=== PATIENT | female | born 1975 | race Caucasian/White ===

== ENCOUNTER 2018-03-05 10:39 | Outpatient (CLI) ==
[2016-01-26 07:41] VITALS: BMI 28.1
== END 2018-03-05 10:40 | disposition home or self-care (01) ==
LOC: RHC-LAB 10:39
PROVIDERS: ATTEND Nurse Practitioner Family
DX: R73.9 Hyperglycemia, unspecified (principal); N64.4 Mastodynia
CPT/HCPCS: 36415; 80053; 83036; 85025

== ENCOUNTER 2018-03-08 08:01 | Outpatient (CLI) ==
[2016-01-26 07:41] VITALS: BMI 28.1
--- NOTE | 2018-03-08 09:18 | MAMMO ---
EXAM: Bilateral digital diagnostic mammogram (2-D and 3-D) History: Left breast mass. Comparison: Bilateral mammogram 12/16/2013 Findings: MLO and CC views of bilateral breasts demonstrate scattered fibroglandular breast parenchy ma. CAD was reviewed by the radiologist. Tomosynthesis was performed. There is a new large asymmet ry within the upper-outer quadrant of the left breast. No suspicious microcalcifications. Impression: New indeterminate asymmetry within the upper-outer quadrant of the left breast. Recomme nd further evaluation with left breast ultrasound. BIRADS 0
--- NOTE | 2018-03-08 09:25 | US ---
EXAM: Left breast ultrasound. History: Breast mass. Comparison: Bilateral mammogram 03/08/2018 Technique: Multiple sonographic images through the left breast were obtained. Color duplex Doppler was used to interrogate vascular flow. Findings: Within the upper-outer quadrant of the left breast there is a large heterogeneous mass-like area that measures 6.3 cm x 4.4 cm x 4.6 cm with surrounding edema. This correlates with findings on mammography and the palpable abnormality. Impression: A large mass-like area within the upper outer quadrant of the left breast is suspicious for malignancy. Recommend further evaluation with ultrasound guided breast biopsy and surgical consu lt. BIRADS 4
== END 2018-03-08 08:02 | disposition home or self-care (01) ==
LOC: RAD 08:01
PROVIDERS: ATTEND Nurse Practitioner Family
DX: N64.4 Mastodynia (principal)